=== PATIENT | female | born 2000 | race Caucasian/White ===

== ENCOUNTER 2021-02-14 21:52 | Emergency (ER) | payer MEDICAID ==
[~2021-02-14] VITALS: Ht 165.1 cm; Wt 56.7 kg
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
[2021-02-14] MEDS ORDERED: FLUORESCEIN SODIUM OPHTH 1 EA STRIP ONE (22:54)
[2021-02-14] MEDS ORDERED: TETRAcaine 5 ML BOTTLE EACHEYE ONE (23:00)
[2021-02-14] MEDS ORDERED: HYDROCODONE/APAP 5/325MG TABLET PO ONE (23:00)
[2021-02-14] MEDS ORDERED: FLUORESCEIN SODIUM OPHTH 1 EA STRIP OP ONE (23:00)
[2021-02-14] MEDS ORDERED: HYDROCODONE/APAP 5/325MG TABLET ONE (23:07)
--- NOTE | 2021-02-14 23:11 | NUR ---
SCIENTIFIC DIVER AT BEDSIDE FOR XR
--- NOTE | 2021-02-14 23:35 | NUR ---
PT C/O OF R EYE PAIN. IRRIGATION TO RIGHT EYE ONGOING.
--- NOTE | 2021-02-14 23:42 | NUR ---
RIGHT EYE IRRIGATION COMPLETE
[2021-02-15] MEDS ORDERED: HYDR-3972 PO (00:17)
[2021-02-15] MEDS ORDERED: IBUP-1957 PO (00:17)
[2021-02-15] MEDS ORDERED: TOBR5DRO RIGHTEYE (00:17)
[2021-02-15] MEDS ORDERED: ONDANSETRON 4 MG TAB.RAPDIS ONE (00:32)
[2021-02-15 00:38] VITALS: BP 105/61
--- NOTE | 2021-02-15 00:40 | NUR ---
Patient discharged to home in stable condition. RX, Written and verbal after care instructions given. Patient verbalizes understanding of instruction. PT AMBULATORY.
[2021-02-15] MEDS ORDERED: ONDANSETRON 4 MG TAB.RAPDIS SL ONE (01:00)
== END 2021-02-15 00:43 | disposition home or self-care (01) ==
LOC: ER 22:06
DX: S83.8X1A Sprain of other specified parts of right knee, initial encounter (principal); S05.01XA Injury of conjunctiva and corneal abrasion without foreign body, right eye, initial encounter; R07.89 Other chest pain; Z79.899 Other long term (current) drug therapy; V49.59XA Passenger injured in collision with other motor vehicles in traffic accident, initial encounter; Y93.89 Activity, other specified; Y92.488 Other paved roadways as the place of occurrence of the external cause; Y99.8 Other external cause status
CPT/HCPCS: 71045; 73564; 99284; J7040; Q0162